=== PATIENT | female | born 1945 | race Caucasian/White ===

== ENCOUNTER 2019-04-29 12:11 | Inpatient (IN) ==
[2019-04-29] MEDS ORDERED: 0.9 % Sodium Chloride 1,000 ML IVC ONE (12:40)
[2019-04-29 13:18] LABS: Basophils # 0.1 K/mcL (0.0-0.2); Eosinophils # 0.2 K/mcL (0.0-0.6); Eosinophils % 2.7 %; Hematocrit 35.9 % (35.3-44.9); Hemoglobin 11.2 g/dL (11.5-15.4); Immature Granulocytes % 0.4 % (0-4); Lymphocytes # 1.2 K/mcL (0.6-4.6); Lymphocytes % 14.2 %; Mean Corpuscular HGB Conc 31.2 g/dL (31.6-35.5); Mean Corpuscular Hemoglobin 26.6 pg (28.0-33.3); Mean Corpuscular Volume 85.3 fL (83.0-100.0); Mean Platelet Volume 10.6 fL (9.4-12.4); Monocytes # 0.7 K/mcL (0.0-1.3); Monocytes % 8.8 %; Neutrophils # 6.1 K/mcL (1.6-8.9); Platelet Count 245 K/mcL (140-400); Red Blood Count 4.21 M/mcL (3.82-4.97); Red Cell Distribution Width 14.6 % (11.5-14.5); Segmented Neutrophils % 72.9 %; White Blood Count 8.4 K/mcL (4.3-11.1)
[2019-04-29 13:26] LABS: INR 1.1
[2019-04-29 13:37] LABS: Calcium 9.3 mg/dL (8.6-10.3); Potassium 4.7 mEq/L (3.5-5.1)
--- NOTE | 2019-04-29 13:39 | Emergency Department Note ---
Disposition Clinical Impression: RADHA (acute kidney injury) Syncope Qualifiers: Syncope type: unspecified Qualified Code(s): R55 - Syncope and collapse Disposition: Admitted As Inpatient Condition: Fair Time of Disposition: 15:14 General Adult HPI - General Chief complaint: ED Fall Stated complaint: Fall hurts all over Time Seen by Provider: 04/29/19 12:14 Source: patient Mode of arrival: ambulatory Limitations: no limitations Nursing Notes Reviewed: Yes Vital Signs Reviewed: Yes - History of Present Illness HPI Narrative: 74-year-old female presents to the emergency department complaining of syncope and falls. Says she has fell multiple times partly 10 times over the last 2 months says she feels like she can pass out and lightheaded and falls in his the ground. She is not on any blood thinners. That she feels it might be her arthritis her her knees that keep giving up she is unsure. Said that she is not tripping or having any mechanical falls. She says she has no headaches no blurry vision last felt was 2 days ago not complaining of any headaches. She has no fevers. No abdominal pain chest pain shortness of breath. Said the the falls is getting worse as what caused her to come in. Pain Scale: 10 - Related Data Home Medications Medication Instructions Recorded Confirmed Cholecalciferol (D-3) [Vitamin D] 2,000 unit PO DAILY 04/29/19 04/29/19 Citalopram [CeleXA] 40 mg PO DAILY 04/29/19 04/29/19 Cyanocobalamin/Folic Acid [Vitamin 1 each PO DAILY 04/29/19 04/29/19 L25-Lfnzt Acid Tablet] LORazepam [Ativan] 1 mg PO HS 04/29/19 04/29/19 Levothyroxine Sodium [Levoxyl] 100 mcg PO DAILY 04/29/19 04/29/19 Losartan Potassium [Cozaar] 50 mg PO DAILY 04/29/19 04/29/19 Magnesium 250 mg PO DAILY 04/29/19 04/29/19 Pantoprazole Sodium [Protonix] 40 mg PO DAILY 04/29/19 04/29/19 Tramadol HCl [Ultram] 50 mg PO QID PRN 04/29/19 04/29/19 Allergies Allergy/AdvReac Type Severity Reaction Status Date / Time No Known Allergies Allergy Verified 09/11/15 16:47 All systems ED: reviewed and negative except as stated. Review of Systems: As Per HPI Past Medical History - Past Medical History Attestation: Yes The following information was validated with the patient. Source: patient Medical history: Reports: GERD, hypertension, thyroid disease - Social History Smoking Status: Former smoker Smokeless Tobacco Status: No Alcohol use: Reports: occasionally Physical Exam - General Limitations: no limitations General appearance: alert, in no apparent distress - Head Head exam: atraumatic, normocephalic, normal inspection - Eye Eye exam: Present: normal appearance, PERRL, EOMI - ENT ENT exam: normal exam, normal oropharynx, mucous membranes moist - Neck Neck exam: Present: normal inspection, full ROM, trachea midline - Chest Chest inspection: Present: normal inspection, symmetric chest wall rise - Respiratory Respiratory exam: Present: normal lung sounds bilaterally - Cardiovascular Cardiovascular exam: Present: regular rate, normal rhythm, normal heart sounds - Abdominal Exam Abdominal exam: Present: soft, Non-Tender, normal bowel sounds. Absent: tenderness, distention, guarding, rebound, rigidity - Extremities Exam Extremities exam: Present: normal inspection, full ROM. Absent: tenderness, pedal edema - Back Exam Back exam: Present: normal inspection, full ROM. Absent: tenderness, CVA tenderness (R), CVA tenderness (L) - Neurological Exam Neurological exam: Present: alert, oriented X3 - Skin Skin exam: Present: warm, dry, intact, normal color Course Course Narrative: We will get EKG CBC BMP PT INR as well as troponin. Well-seated urinalysis. Patient most likely will be admitted for syncope workup. She is on any blood thinners at this time. Well-seated CT of the head to be sure there is no acute intracranial pathology. Vital Signs Temperature 98.6 F 04/29/19 12:13 Pulse Rate 80 04/29/19 12:13 Respiratory Rate 18 04/29/19 12:13 Blood Pressure 140/73 04/29/19 12:13 O2 Sat by Pulse Oximetry 96 04/29/19 12:13 Temperature 98.6 F 04/29/19 12:13 Pulse Rate 80 04/29/19 12:13 Respiratory Rate 18 04/29/19 12:13 Blood Pressure 140/73 04/29/19 12:13 O2 Sat by Pulse Oximetry 95 04/29/19 12:28 Oxygen Delivery Oxygen Delivery Room Air Medical Decision Making - MDM Narrative Medical decision making narrative: Labs came back slightly elevated creatinine could be RADHA. Did give patient IV fluids. Head CT came back negative chest x-ray also negative EKG had no acute findings. Patient will be admitted to the hospitalist service to Dr. Dwight root. For a syncope workup. Patient met in stable condition Chest X-Ray 04/29/19 12:40 IMPRESSION: No radiographic evidence of acute cardiopulmonary disease. D/ / Sedrick Pringle / Sedrick Pringle Interpreting Provider: Sedrick Pringle Head CT 04/29/19 12:40 IMPRESSION: 1. No acute intracranial abnormality. 2. Minimal global parenchymal volume loss. 3. Atherosclerosis. D/ / Igor Mcmanus MD / Igor Mcmanus MD Interpreting Provider: Igor Mcmanus MD - Medical Records Medical records reviewed: Yes I reviewed the patient's medical records. - Lab Data Lab results reviewed: Yes I reviewed the patient's lab results. Result diagrams: 04/29/19 12:57 04/29/19 12:57 Lab Results 04/29/19 04/29/19 04/29/19 Range/Units 12:57 12:57 12:57 WBC 8.4 (4.3-11.1) K/mcL RBC 4.21 (3.82-4.97) M/mcL Hgb 11.2 L (11.5-15.4) g/dL Hct 35.9 (35.3-44.9) % MCV 85.3 (83.0-100.0) fL MCH 26.6 L (28.0-33.3) pg MCHC 31.2 L (31.6-35.5) g/dL RDW 14.6 H (11.5-14.5) % Plt Count 245 (140-400) K/mcL MPV 10.6 (9.4-12.4) fL Immature Gran % 0.4 (0-4) % Seg Neutrophils % 72.9 % Lymphocytes % 14.2 % Monocytes % 8.8 % Eosinophils % 2.7 % Basophils % 1.0 % Neutrophils # 6.1 (1.6-8.9) K/mcL Lymphocytes # 1.2 (0.6-4.6) K/mcL Monocytes # 0.7 (0.0-1.3) K/mcL Eosinophils # 0.2 (0.0-0.6) K/mcL Basophils # 0.1 (0.0-0.2) K/mcL PT 12.0 (9.4-12.1) Seconds INR 1.1 Sodium 132 L (136-145) mEq/L Potassium 4.7 (3.5-5.1) mEq/L Chloride 97 L (98-107) mEq/L Carbon Dioxide 31 H (23-29) mEq/L BUN 16 (8-23) mg/dL Creatinine 1.23 H (0.60-1.20) mg/dL Est GFR ( Amer) 51 L (> 60) Est GFR (Non-Af Amer) 42 L (> 60) BUN/Creatinine Ratio 13 (6-26) Glucose 107 H (70-105) mg/dL Calculated Osmolality 276 L (280-300) Calcium 9.3 (8.6-10.3) mg/dL Troponin I (< 0.04) ng/mL Urine Color (Yellow) Urine Clarity (Clear) Urine pH (5.0-8.0) pH Units Ur Specific [place] (1.010-1.025) Urine Protein (Neg-Trace) mg/dL Urine Glucose (UA) (Normal) mg/dL Urine Ketones (Negative) mg/dL Urine Blood (Negative) Urine Nitrite (Negative) Urine Bilirubin (Negative) Urine Urobilinogen (Normal) mg/dL Ur Leukocyte Esterase (Negative) Urine Microscopic RBC (0-3) per hpf Urine Microscopic WBC (0-3) per hpf Ur Squamous Epith Cells (None-Few) per lpf Urine Bacteria (None-Few) per hpf Hyaline Casts (None-Few) per lpf Ur Culture Indicated? (NO) 04/29/19 04/29/19 Range/Units 12:57 14:28 WBC (4.3-11.1) K/mcL RBC (3.82-4.97) M/mcL Hgb (11.5-15.4) g/dL Hct (35.3-44.9) % MCV (83.0-100.0) fL MCH (28.0-33.3) pg MCHC (31.6-35.5) g/dL RDW (11.5-14.5) % Plt Count (140-400) K/mcL MPV (9.4-12.4) fL Immature Gran % (0-4) % Seg Neutrophils % % Lymphocytes % % Monocytes % % Eosinophils % % Basophils % % Neutrophils # (1.6-8.9) K/mcL Lymphocytes # (0.6-4.6) K/mcL Monocytes # (0.0-1.3) K/mcL Eosinophils # (0.0-0.6) K/mcL Basophils # (0.0-0.2) K/mcL PT (9.4-12.1) Seconds INR Sodium (136-145) mEq/L Potassium (3.5-5.1) mEq/L Chloride (98-107) mEq/L Carbon Dioxide (23-29) mEq/L BUN (8-23) mg/dL Creatinine (0.60-1.20) mg/dL Est GFR ( Amer) (> 60) Est GFR (Non-Af Amer) (> 60) BUN/Creatinine Ratio (6-26) Glucose (70-105) mg/dL Calculated Osmolality (280-300) Calcium (8.6-10.3) mg/dL Troponin I < 0.03 (< 0.04) ng/mL Urine Color Yellow (Yellow) Urine Clarity Clear (Clear) Urine pH 7.0 (5.0-8.0) pH Units Ur Specific [place] 1.009 L (1.010-1.025) Urine Protein Negative (Neg-Trace) mg/dL Urine Glucose (UA) Normal (Normal) mg/dL Urine Ketones Negative (Negative) mg/dL Urine Blood Negative (Negative) Urine Nitrite Negative (Negative) Urine Bilirubin Negative (Negative) Urine Urobilinogen Normal (Normal) mg/dL Ur Leukocyte Esterase Trace H (Negative) Urine Microscopic RBC 0-3 (0-3) per hpf Urine Microscopic WBC 0-3 (0-3) per hpf Ur Squamous Epith Cells Moderate H (None-Few) per lpf Urine Bacteria None Seen (None-Few) per hpf Hyaline Casts None Seen (None-Few) per lpf Ur Culture Indicated? YES A (NO) - Radiology Data Radiology results reviewed: Yes I reviewed the patient's radiology results. - EKG Data EKG #1 EKG attestation: Yes I reviewed and interpreted this EKG. EKG results narrative: EKG done at 1245 review myself and the attending shows sinus rhythm at a rate of 67, NM 182, QRS 84, QTc 434. There is no acute ST changes no acute T-wave changes no signs of ischemia. No signs of hypertrophy, heart strain, heart block. No WPW/Brugada/HOCM. No changes based on old EKG done 12/07/13
[2019-04-29 14:44] LABS: Bilirubin,Urine Negative (Negative); Blood,Urine Negative (Negative); Clarity,Urine Clear (Clear); Color,Urine Yellow (Yellow); Glucose,Urine (UA) Normal (Normal); Ketones,Urine Negative (Negative); Leukocyte Esterase,Urine Trace (Negative); Nitrite,Urine Negative (Negative); Protein,Urine Negative (Neg-Trace); Specific Gravity,Urine 1.009 (1.010-1.025); Urobilinogen,Urine Normal (Normal)
[2019-04-29 14:46] LABS: Bacteria,Urine None Seen per hpf (None-Few); Hyaline Casts,Urine None Seen per lpf (None-Few); RBC,Urine 0-3 per hpf (0-3); Squamous Epithelial Cell,Urine Moderate per lpf (None-Few); WBC,Urine 0-3 per hpf (0-3)
--- NOTE | 2019-04-29 15:23 | Internal Med History&Physical ---
Date of Encounter: 04/29/19 Time of Encounter: 15:23 Internal Medicine - H&P: HPI History of present illness: Ms. Doe is a 74 year old female with history of RLS, HTN, hypothyroid presented to ED for left hip pain with frequent falls. She is also having acute left foot pain (from falling) and a chronic right foot pain. She has fallen 10 times in the past two months. She states she occasionally loses balance, no LOC. She has hit her head a few times. Not on any blood thinners. She feels probelms from her knees. She denies headache, blurry vision, chest pain, SOB, fevers, n/v, neck stiffness. She has chronic left leg numbness after a L4-L5 fusion in the past. In the ED A CT head was done that showed no acute process. A left hip and right foot x-ray was negative for fracture. She had borderline elevated creatinine but near baseline, she was given 1 L IV fluids. Past Med Surg Social Fam HX - Past Medical History Medical history: GERD, hypertension, thyroid disease - Past Surgical History Additional surgical history: back surgery - Social History Smoking Status: Former smoker Smokeless Tobacco Status: No Alcohol use: occasionally Internal Medicine - H&P: Meds Cholecalciferol (D-3) [Vitamin D] 2,000 unit PO DAILY 04/29/19 [History] Citalopram [CeleXA] 40 mg PO DAILY 04/29/19 [History] Cyanocobalamin/Folic Acid [Vitamin N39-Yhhyx Acid Tablet] 1 each PO DAILY 04/29/19 [History] LORazepam [Ativan] 1 mg PO HS 04/29/19 [History] Levothyroxine Sodium [Levoxyl] 100 mcg PO DAILY 04/29/19 [History] Losartan Potassium [Cozaar] 50 mg PO DAILY 04/29/19 [History] Magnesium 250 mg PO DAILY 04/29/19 [History] Pantoprazole Sodium [Protonix] 40 mg PO DAILY 04/29/19 [History] Tramadol HCl [Ultram] 50 mg PO QID PRN 04/29/19 [History] Allergy/AdvReac Type Severity Reaction Status Date / Time No Known Allergies Allergy Verified 09/11/15 16:47 All Systems PM: A 10-system review of systems was performed and is negative for pertinent findings except as documented above in the HPI. - Constitutional Vitals: Temp Pulse Resp BP Pulse Ox 98.6 F 80 18 140/73 95 04/29/19 12:13 04/29/19 12:13 04/29/19 12:13 04/29/19 12:13 04/29/19 12:28 General appearance: Present: A&O X 3, obese Exam: Moderate discomfort from hip pain . - Head Head exam: Present: atraumatic, normocephalic - Eye Eye exam: Present: PERRL, conjuntiva pink, sclera anicteric Pupils: Present: PERRL - Neck Neck exam general surgery: Present: supple, trachea midline. Absent: lymphadenopathy - Respiratory Respiratory exam: Present: CTAB. Absent: accessory muscle use, rales, rhonchi, wheezes - Cardiovascular Cardiovascular exam: Present: RRR, +S1, +S2. Absent: diastolic murmur, gallop, rubs, systolic murmur - GI/Abdominal GI/Abdominal exam: Present: normal bowel sounds, soft, no peritoneal signs. Absent: distended, tenderness - Extremities Exam Extremities exam: Present: warm, radial pulses palpable and symmetrical. Absent: calf tenderness, cyanotic, pedal edema Additional comments: Left hip tenderness without any bruising or hematoma appearing. Sensation of both lower extremities are in tact. Tibial pulses palpable bilaterally. Strength assessment limited due to patient left hip pain. Legs are not normally aligned. - Neurological Exam Neurological exam: Present: CN II-XII intact, oriented X3, no focal deficits. Absent: pronater drift, facial droop, speech deficit - Skin Skin exam: Present: dry, intact Additional comments: Right upper extremity bruising. Internal Med - H&P Results - Labs CBC & Chem 7: 04/29/19 12:57 04/29/19 12:57 Labs: Short CBC 04/29/19 Range/Units 12:57 WBC 8.4 (4.3-11.1) K/mcL Hgb 11.2 L (11.5-15.4) g/dL Hct 35.9 (35.3-44.9) % Plt Count 245 (140-400) K/mcL Neutrophils # 6.1 (1.6-8.9) K/mcL BMP 04/29/19 12:57 Sodium 132 L Potassium 4.7 Chloride 97 L Carbon Dioxide 31 H BUN 16 Creatinine 1.23 H Glucose 107 H Calcium 9.3 Cardiac Enzymes 04/29/19 Range/Units 12:57 Troponin I < 0.03 (< 0.04) ng/mL Urine 04/29/19 Range/Units 14:28 Urine Color Yellow (Yellow) Urine Clarity Clear (Clear) Urine pH 7.0 (5.0-8.0) pH Units Ur Specific [place] 1.009 L (1.010-1.025) Urine Protein Negative (Neg-Trace) mg/dL Urine Glucose (UA) Normal (Normal) mg/dL - Impressions ITS Impressions Chest X-Ray 04/29/19 12:40 IMPRESSION: No radiographic evidence of acute cardiopulmonary disease. D/ / Sedrick Pringle / Sedrick Pringle Interpreting Provider: Sedrick Pringle Head CT 04/29/19 12:40 IMPRESSION: 1. No acute intracranial abnormality. 2. Minimal global parenchymal volume loss. 3. Atherosclerosis. D/ / Igor Mcmanus MD / Igor Mcmanus MD Interpreting Provider: Igor Mcmanus MD - Assessment and Plan (1) Syncope Current Visit: Yes Status: Acute Assessment and plan: Patient having loss of balance. Admitted for syncope, unsure if this is true syncopal episode. She is having loss of balance possibly lower extremity deficit. No bowel or bladder issues. - Echocardiogram - Carotid duplex - Neurology consult - MRI cervical spine - Check TSH, B12 Qualifiers: Syncope type: unspecified Qualified Code(s): R55 - Syncope and collapse (2) Left hip pain Current Visit: Yes Status: Acute Assessment and plan: X-ray negative for fracture but there is possibly underlying fracture not seen on x-ray patient appears in moderate discomfort for the hip pain. Obtain MRI hip. (3) Hypertension Current Visit: Yes Status: Acute Qualifiers: Hypertension type: essential hypertension Qualified Code(s): I10 - Essential (primary) hypertension (4) Hypothyroid Current Visit: Yes Status: Acute Qualifiers: Hypothyroidism type: unspecified Qualified Code(s): E03.9 - Hypothyroidism, unspecified (5) Restless leg syndrome Current Visit: Yes Status: Acute (6) Chronic kidney disease (CKD), stage III (moderate) Current Visit: Yes Status: Acute (7) RADHA (acute kidney injury) Current Visit: Yes Status: Acute Assessment and plan: Patient creatinine slightly elevated but is near baseline. Give gentle IV fluid hydration. (8) Frequent falls Current Visit: Yes Status: Acute Assessment and plan: Workup for presyncope and lower extremity issues as above PT/OT. - Time Spent With Patient Total time spent is greater than 50% in coordination of care (as documented) at patient's floor/unit and/or counseling patient:
[2019-04-29] MEDS ORDERED: traMADol 50 MG TABLET PO PRN (15:29)
[2019-04-29] MEDS ORDERED: Naloxone 0.4 MG/ML INJ IVP PRN (15:31)
--- NOTE | 2019-04-29 15:35 | Emergency Department Note ---
Disposition Clinical Impression: RADHA (acute kidney injury) Syncope Qualifiers: Syncope type: unspecified Qualified Code(s): R55 - Syncope and collapse Disposition: Admitted As Inpatient Condition: Fair Time of Disposition: 15:35 General Adult HPI - General Chief complaint: ED Fall Stated complaint: Fall hurts all over Time Seen by Provider: 04/29/19 12:14 Source: patient Mode of arrival: ambulatory Limitations: no limitations - History of Present Illness Pain Scale: 10 - Related Data Home Medications Medication Instructions Recorded Confirmed Cholecalciferol (D-3) [Vitamin D] 2,000 unit PO DAILY 04/29/19 04/29/19 Citalopram [CeleXA] 40 mg PO DAILY 04/29/19 04/29/19 Cyanocobalamin/Folic Acid [Vitamin 1 each PO DAILY 04/29/19 04/29/19 T73-Sgupo Acid Tablet] LORazepam [Ativan] 1 mg PO HS 04/29/19 04/29/19 Levothyroxine Sodium [Levoxyl] 100 mcg PO DAILY 04/29/19 04/29/19 Losartan Potassium [Cozaar] 50 mg PO DAILY 04/29/19 04/29/19 Magnesium 250 mg PO DAILY 04/29/19 04/29/19 Pantoprazole Sodium [Protonix] 40 mg PO DAILY 04/29/19 04/29/19 Tramadol HCl [Ultram] 50 mg PO QID PRN 04/29/19 04/29/19 Allergies Allergy/AdvReac Type Severity Reaction Status Date / Time No Known Allergies Allergy Verified 09/11/15 16:47 Past Medical History - Past Medical History Medical history: Reports: GERD, hypertension, thyroid disease - Social History Smoking Status: Former smoker Smokeless Tobacco Status: No Alcohol use: Reports: occasionally Physical Exam - General Limitations: no limitations General appearance: alert, in no apparent distress Course Vital Signs Temperature 98.6 F 04/29/19 12:13 Pulse Rate 80 04/29/19 12:13 Respiratory Rate 18 04/29/19 12:13 Blood Pressure 140/73 04/29/19 12:13 O2 Sat by Pulse Oximetry 96 04/29/19 12:13 Temperature 98.6 F 04/29/19 12:13 Pulse Rate 80 04/29/19 12:13 Respiratory Rate 18 04/29/19 12:13 Blood Pressure 140/73 04/29/19 12:13 O2 Sat by Pulse Oximetry 95 04/29/19 12:28 Oxygen Delivery Oxygen Delivery Room Air Medical Decision Making - Lab Data Result diagrams: 04/29/19 12:57 04/29/19 12:57 Lab Results 04/29/19 04/29/19 04/29/19 Range/Units 12:57 12:57 12:57 WBC 8.4 (4.3-11.1) K/mcL RBC 4.21 (3.82-4.97) M/mcL Hgb 11.2 L (11.5-15.4) g/dL Hct 35.9 (35.3-44.9) % MCV 85.3 (83.0-100.0) fL MCH 26.6 L (28.0-33.3) pg MCHC 31.2 L (31.6-35.5) g/dL RDW 14.6 H (11.5-14.5) % Plt Count 245 (140-400) K/mcL MPV 10.6 (9.4-12.4) fL Immature Gran % 0.4 (0-4) % Seg Neutrophils % 72.9 % Lymphocytes % 14.2 % Monocytes % 8.8 % Eosinophils % 2.7 % Basophils % 1.0 % Neutrophils # 6.1 (1.6-8.9) K/mcL Lymphocytes # 1.2 (0.6-4.6) K/mcL Monocytes # 0.7 (0.0-1.3) K/mcL Eosinophils # 0.2 (0.0-0.6) K/mcL Basophils # 0.1 (0.0-0.2) K/mcL PT 12.0 (9.4-12.1) Seconds INR 1.1 Sodium 132 L (136-145) mEq/L Potassium 4.7 (3.5-5.1) mEq/L Chloride 97 L (98-107) mEq/L Carbon Dioxide 31 H (23-29) mEq/L BUN 16 (8-23) mg/dL Creatinine 1.23 H (0.60-1.20) mg/dL Est GFR ( Amer) 51 L (> 60) Est GFR (Non-Af Amer) 42 L (> 60) BUN/Creatinine Ratio 13 (6-26) Glucose 107 H (70-105) mg/dL Calculated Osmolality 276 L (280-300) Calcium 9.3 (8.6-10.3) mg/dL Troponin I (< 0.04) ng/mL Urine Color (Yellow) Urine Clarity (Clear) Urine pH (5.0-8.0) pH Units Ur Specific [place] (1.010-1.025) Urine Protein (Neg-Trace) mg/dL Urine Glucose (UA) (Normal) mg/dL Urine Ketones (Negative) mg/dL Urine Blood (Negative) Urine Nitrite (Negative) Urine Bilirubin (Negative) Urine Urobilinogen (Normal) mg/dL Ur Leukocyte Esterase (Negative) Urine Microscopic RBC (0-3) per hpf Urine Microscopic WBC (0-3) per hpf Ur Squamous Epith Cells (None-Few) per lpf Urine Bacteria (None-Few) per hpf Hyaline Casts (None-Few) per lpf Ur Culture Indicated? (NO) 04/29/19 04/29/19 Range/Units 12:57 14:28 WBC (4.3-11.1) K/mcL RBC (3.82-4.97) M/mcL Hgb (11.5-15.4) g/dL Hct (35.3-44.9) % MCV (83.0-100.0) fL MCH (28.0-33.3) pg MCHC (31.6-35.5) g/dL RDW (11.5-14.5) % Plt Count (140-400) K/mcL MPV (9.4-12.4) fL Immature Gran % (0-4) % Seg Neutrophils % % Lymphocytes % % Monocytes % % Eosinophils % % Basophils % % Neutrophils # (1.6-8.9) K/mcL Lymphocytes # (0.6-4.6) K/mcL Monocytes # (0.0-1.3) K/mcL Eosinophils # (0.0-0.6) K/mcL Basophils # (0.0-0.2) K/mcL PT (9.4-12.1) Seconds INR Sodium (136-145) mEq/L Potassium (3.5-5.1) mEq/L Chloride (98-107) mEq/L Carbon Dioxide (23-29) mEq/L BUN (8-23) mg/dL Creatinine (0.60-1.20) mg/dL Est GFR ( Amer) (> 60) Est GFR (Non-Af Amer) (> 60) BUN/Creatinine Ratio (6-26) Glucose (70-105) mg/dL Calculated Osmolality (280-300) Calcium (8.6-10.3) mg/dL Troponin I < 0.03 (< 0.04) ng/mL Urine Color Yellow (Yellow) Urine Clarity Clear (Clear) Urine pH 7.0 (5.0-8.0) pH Units Ur Specific [place] 1.009 L (1.010-1.025) Urine Protein Negative (Neg-Trace) mg/dL Urine Glucose (UA) Normal (Normal) mg/dL Urine Ketones Negative (Negative) mg/dL Urine Blood Negative (Negative) Urine Nitrite Negative (Negative) Urine Bilirubin Negative (Negative) Urine Urobilinogen Normal (Normal) mg/dL Ur Leukocyte Esterase Trace H (Negative) Urine Microscopic RBC 0-3 (0-3) per hpf Urine Microscopic WBC 0-3 (0-3) per hpf Ur Squamous Epith Cells Moderate H (None-Few) per lpf Urine Bacteria None Seen (None-Few) per hpf Hyaline Casts None Seen (None-Few) per lpf Ur Culture Indicated? YES A (NO) Attestation Statement - Attestation Attestation: I reviewed the residents documentation and agree with the residents assessment and plan of care. I have personally had face to face time with the patient. (Brief History, Brief Exam, and MDM) I personally supervised and was present for the rahseed/critical portions of the following procedures completed by the resident: EKG 74 year old female presents to the ED with complaints of sycnope and mutliple falls. mild RADHA and increased pain in left hip and right foot. Zayra has a hisgtory of restless leg syndrome of which she has had a difficult time medicating and managing at home. troponing negative, non-ischemic EKG. Admit to medicine.
[2019-04-29] MEDS ORDERED: 0.9 % Sodium Chloride 1,000 ML IVC SCH (15:45)
[2019-04-29 16:54] LABS: Magnesium 2.1 mg/dL (1.6-2.6); Phosphorous 3.3 mg/dL (2.7-4.5)
[2019-04-29 17:07] LABS: Thyroid Stimulating Hormone 4.471 mcIU/mL (0.340-5.600)
[2019-04-29] MEDS: *HR* HYDROcodone/Acet 7.5/325 mg TABLET PO PRN (17:57)
[2019-04-29] MEDS: *HR* LORazepam 1 MG TABLET PO SCH (23:44)
[2019-04-30] MEDS: *HR* HYDROcodone/Acet 7.5/325 mg TABLET PO PRN ×3 (01:48→22:32)
[2019-04-30] MEDS ORDERED: tiZANidine 4 MG TABLET PO ONE ×2 (04:24)
[2019-04-30] MEDS ORDERED: tiZANidine 4 MG TABLET ONE (04:35)
[2019-04-30 05:28] LABS: Calcium 8.5 mg/dL (8.6-10.3); Potassium 4.2 mEq/L (3.5-5.1)
[2019-04-30 05:44] LABS: Basophils # 0.1 K/mcL (0.0-0.2); Basophils % 0.9 %; Eosinophils # 0.2 K/mcL (0.0-0.6); Eosinophils % 2.9 %; Hematocrit 34.6 % (35.3-44.9); Hemoglobin 10.4 g/dL (11.5-15.4); Immature Granulocytes % 0.4 % (0-4); Lymphocytes # 1.2 K/mcL (0.6-4.6); Lymphocytes % 15.3 %; Mean Corpuscular HGB Conc 30.1 g/dL (31.6-35.5); Mean Corpuscular Hemoglobin 26.1 pg (28.0-33.3); Mean Corpuscular Volume 86.7 fL (83.0-100.0); Monocytes # 0.8 K/mcL (0.0-1.3); Monocytes % 9.9 %; Neutrophils # 5.4 K/mcL (1.6-8.9); Platelet Count 232 K/mcL (140-400); Red Blood Count 3.99 M/mcL (3.82-4.97); Red Cell Distribution Width 14.5 % (11.5-14.5); Segmented Neutrophils % 70.6 %; White Blood Count 7.7 K/mcL (4.3-11.1)
[2019-04-30] MEDS: Vitamin B Complex/Vit C/Vit E 1 EACH TABLET PO SCH (07:52)
[2019-04-30] MEDS: Magnesium Oxide 400 MG TABLET PO SCH (07:52)
--- NOTE | 2019-04-30 12:02 | Internal Med Progress Note ---
Hospitalist Progress Note - Encounter Date of Encounter: 04/30/19 Time of Encounter: 12:00 - Subjective Interval History: No acute events. - Exam Vitals: Temp Pulse Resp BP Pulse Ox 98.0 F 57 18 111/62 96 04/30/19 11:00 04/30/19 11:00 04/30/19 11:00 04/30/19 11:00 04/30/19 11:00 Exam: Moderate discomfort from hip pain . - Assessment and Plan (1) Weakness Current Visit: Yes Status: Acute Assessment and Plan: Patient having loss of balance. Admitted for syncope, unsure if this is true syncopal episode. She is having loss of balance possibly lower extremity deficit. No bowel or bladder issues. Echocardiogram showed no findings to explain dizziness. Carotid duplex normal. TSH, B12 wnl PT/OT recs SNF which patient is agreeable to. Dispo: await placement. (2) Left hip pain Current Visit: Yes Status: Acute Assessment and Plan: X-ray negative for fracture but there is possibly underlying fracture not seen on x-ray patient appears in moderate discomfort for the hip pain. MRI was done that showed no acute fracture. - Continue supportive care. - PT/OT (3) Hypertension Current Visit: Yes Status: Acute Assessment and Plan: Cozaar held on admission due to renal function and lower normal BP. Currently BP is within normal limits. Resume Cozaar if BP increases. (4) Hypothyroid Current Visit: Yes Status: Acute (5) Restless leg syndrome Current Visit: Yes Status: Acute Assessment and Plan: Follows-up as outpatient. (6) Chronic kidney disease (CKD), stage III (moderate) Current Visit: Yes Status: Acute Assessment and Plan: At baseline (7) RADHA (acute kidney injury) Current Visit: Yes Status: Acute Assessment and Plan: Patient creatinine slightly elevated but is near baseline. was given IV fluid hydration Resolved. (8) Frequent falls Current Visit: Yes Status: Acute Assessment and Plan: Workup for presyncope and lower extremity issues as above PT/OT. - Time Spent with Patient Total time spent is greater than 50% in coordination of care (as documented) at patient's floor/unit and/or counseling patient: Internal Medicine: Result - Labs CBC & Chem 7: 04/30/19 04:55 04/30/19 04:55 Labs: Short CBC 04/29/19 04/30/19 Range/Units 12:57 04:55 WBC 8.4 7.7 (4.3-11.1) K/mcL Hgb 11.2 L 10.4 L (11.5-15.4) g/dL Hct 35.9 34.6 L (35.3-44.9) % Plt Count 245 232 (140-400) K/mcL Neutrophils # 6.1 5.4 (1.6-8.9) K/mcL BMP 04/29/19 04/30/19 12:57 04:55 Sodium 132 L 136 Potassium 4.7 4.2 Chloride 97 L 103 Carbon Dioxide 31 H 26 BUN 16 14 Creatinine 1.23 H 1.15 Glucose 107 H 109 H Calcium 9.3 8.5 L Cardiac Enzymes 04/29/19 Range/Units 12:57 Troponin I < 0.03 (< 0.04) ng/mL Urine 04/29/19 Range/Units 14:28 Urine Color Yellow (Yellow) Urine Clarity Clear (Clear) Urine pH 7.0 (5.0-8.0) pH Units Ur Specific [place] 1.009 L (1.010-1.025) Urine Protein Negative (Neg-Trace) mg/dL Urine Glucose (UA) Normal (Normal) mg/dL - ABG Interpretation ABG results: PT/INR, D-dimer PT 12.0 Seconds (9.4-12.1) 04/29/19 12:57 - Impressions Impressions Chest X-Ray 04/29/19 12:40 IMPRESSION: No radiographic evidence of acute cardiopulmonary disease. D/ / Sedrick Pringle / Sedrick Pringle Interpreting Provider: Sedrick Pringle Head CT 04/29/19 12:40 IMPRESSION: 1. No acute intracranial abnormality. 2. Minimal global parenchymal volume loss. 3. Atherosclerosis. D/ / Igor Mcmanus MD / Igor Mcmanus MD Interpreting Provider: Igor Mcmanus MD Hip X-Ray 04/29/19 15:12 IMPRESSION: No acute osseous abnormality on AP pelvis and left hip radiographs. Mild left hip joint osteoarthritis. If pain persists or worsens, then additional evaluation with MRI is indicated to ensure no underlying radiographically occult process such as fracture, AVN or transient osteoporosis. D/ / Sedrick Pringle / Sedrick Pringle Interpreting Provider: Sedrick Pringle Foot X-Ray 04/29/19 15:21 IMPRESSION: No acute osseous injury. Moderate to severe pattern of osteoarthritis. D/ / Crispin Claire MD / Crispin Claire MD Interpreting Provider: Crispin Claire MD Hip MRI 04/29/19 17:00 IMPRESSION: 1. Image quality graded secondary to motion artifact. 2. Within limits of the exam no acute fracture identified. 3. Mild degenerative changes of the bilateral hips. D/ / Erik Ronquillo MD / Erik Ronquillo MD Interpreting Provider: Erik Ronquillo MD Cervical Spine MRI 04/29/19 19:17 IMPRESSION: Spondylotic changes/disc osteophyte complex results in [id number] canal narrowing at C5-6. No significant change since prior study. D/ / Ralph Riley MD / Ralph Riley MD Interpreting Provider: Ralph Riley MD Lumbar Spine MRI 04/29/19 19:17 IMPRESSION: Limited exam due to artifact Multilevel degenerative disc disease throughout the lower thoracic spine and the lumbar spine as described. See above for details D/ / Kamaljit Edouard / Kamaljit Edouard Interpreting Provider: Kamaljit Edouard Echocardiogram 04/29/19 21:42 Impressions: LVEF 60%. Indeterminate diastolic function. Normal right ventricular structure and function. Mild tricuspid regurgitation. No pulmonary hypertension. Left Ventricular Wall Motion: Rest Echo Findings All wall segments showed normal motion. Findings: Study Quality * Technically adequate exam. ECG Findings * Normal sinus rhythm. Left Ventricle * LVEF 60%. * Normal LV chamber size, wall thickness and function. * Indeterminate diastolic function. * No LVOT obstruction. Right Ventricle * Normal right ventricular structure and function. Left Atrium * Normal left atrial size. Right Atrium * Normal right atrial size. Mitral Valve * Normal mitral valve structure. * No mitral stenosis. * Trace mitral regurgitation. Aortic Valve * No aortic regurgitation. * Trileaflet aortic valve. * No aortic stenosis. Tricuspid Valve * Tricuspid valve not well visualized. * Mild tricuspid regurgitation. * Estimated RA pressure is 3 mmHg. * Estimated RVSP is 23 mmHg. * No pulmonary hypertension. Pulmonic Valve * Pulmonic valve is not well visualized. * No pulmonic stenosis. * No pulmonic regurgitation. Pulmonary Artery * Pulmonary artery not well visualized. Aorta * Normally sized aortic root. Pericardium * There is no pericardial effusion present. Interatrial Septum * No evidence of PFO by color Doppler. IVC * Normal IVC dimensions and inspiratory collapse. Consult Discharge Plan - Plan Referrals: Agapito Reese DO [Primary Care Provider] - (3) Hypertension Qualifiers: Hypertension type: essential hypertension Qualified Code(s): I10 - Essential (primary) hypertension (4) Hypothyroid Qualifiers: Hypothyroidism type: unspecified Qualified Code(s): E03.9 - Hypothyroidism, unspecified
--- NOTE | 2019-04-30 14:38 | Neurology - Consult Note ---
Date of Encounter: 04/30/19 Time of Encounter: 14:33 Assessment and Plan (1) Frequent falls Current Visit: Yes Status: Acute Patient with prior history of lumbar disc disease, status post lumbar fusion surgery, severe restless leg syndrome who developed chronic worsening frequent falling along with significant muscle stiffness in her lower extremities concerning for myelopathy. Patient completed MRI of the cervical spine which did show spinal canal stenosis worst at the level of C6-C7. The finding may contribute to the patient's frequent falling and myelopathic symptoms. Patient also had lumbar MRI which demonstrated post surgical changes as well as multiple level of disc disease however, no acute pathology identified that would need urgent surgical intervention. I would recommend the patient to follow-up with her spine surgeon at [facility] in the next one or 2 weeks for evaluation and treatment of cervical disc disease causing cervical myelopathy and frequent falling. Patient was offered to see spine surgeon here but she refused. She is to get PT evaluation and therapy MRI of the cervical spine and lumbar spine results reviewed and discussed with patient. All questions answered. (2) Restless leg syndrome Current Visit: Yes Status: Acute Patient has been treated and evaluated in the past for her restless leg syndrome. She has tried dopamine agonist therapy in the past without any significant benefits. Cause of restless leg syndrome may be secondary to her history of lumbar disc disease as well as cervical disc disease with myelopathy. Patient is advised to contact her spine surgeon for further evaluation and treatment of cervical disc disease causing myelopathy History of Present Illness Chief complaint: frequent falling HPI: Ms. Doe is a 74 year old female with a past medical history significant for restless leg syndrome, status post lumbar fusion surgery during 2016 who presented to the emergency room with the frequent falling. Patient states that she has been having frequent falling since the last few years gradually getting worse. She states that she has significant restless leg syndrome and has been tried on different medications but there are not helping her. Apparently, she has history of lumbar disc disease and during 2016 she was having difficulty walking and frequent falling and she was eventually evaluated by spine surgeon at [facility] who did lumbar fusion surgery for her. After surgery, her symptoms temporarily improved however, gradually she started experiencing worsening restless leg syndrome that prevent her from falling asleep at night. She states that during the daytime she feels so exhausted because of lack of sleep that when she walks she fell. She also has right knee replacement. During the last fall, she hurt her right foot. She also notices that her feet and legs are very stiff and at times her feet would turning side causing difficulty walking. At the time of this interview, patient completed MRI of the cervical spine as well as lumbar spine without contrast. MRI of the cervical spine D show multiple disc bulging causing spinal canal stenosis, worst at the level of C6- C7. MRI of the lumbar spine showed post surgical fusion however the study is markedly contaminated by motion artifact. Past Med Surg Social Fam HX - Past Medical History Medical history: GERD, hypertension, thyroid disease Psychiatric history: no psych history - Past Surgical History Surgical History: knee replacement, AILEEN/BSO Additional surgical history: back surgery (L4, L5, S1), right TKR - Social History Smoking Status: Former smoker Smokeless Tobacco Status: No Alcohol use: occasionally Drug use: none - Family History Father Hx Family Endocrine Disorder: Yes (T2DM) Mother Hx Family Cancer: Yes (colon cancer) Medications and Allergies Cholecalciferol (D-3) [Vitamin D] 2,000 unit PO DAILY 04/29/19 [History] Citalopram [CeleXA] 40 mg PO DAILY 04/29/19 [History] Cyanocobalamin/Folic Acid [Vitamin C37-Ycpuo Acid Tablet] 1 tab PO DAILY 04/29/19 [History] LORazepam [Ativan] 1 mg PO HS 04/29/19 [History] Levothyroxine Sodium [Levoxyl] 100 mcg PO DAILY 04/29/19 [History] Losartan Potassium [Cozaar] 50 mg PO DAILY 04/29/19 [History] Magnesium 250 mg PO DAILY 04/29/19 [History] Pantoprazole Sodium [Protonix] 40 mg PO DAILY 04/29/19 [History] Tramadol HCl [Ultram] 50 mg PO QID PRN 04/29/19 [History] Allergy/AdvReac Type Severity Reaction Status Date / Time No Known Allergies Allergy Verified 09/11/15 16:47 All Systems: The remainder of the systems were reviewed and are negative - Constitutional Constitutional ROS IM: anorexia (no), chills (no), daytime sleepiness (no), frequent falls (yes) - Nose, Mouth, Throat Nose, mouth and throat: abnormal hearing (no), dizziness (no), headache(s) (no) - Cardiovascular Cardiovascular ROS IM: chest pain (no), chest pain at rest (no), chest pain with activity (no) - Respiratory Respiratory IM: cough (no), dyspnea (no), hemoptysis (no), dyspnea on exertion (no) - Gastrointestinal Gastrointestinal: abdominal pain (no), change in bowel habits (no) - Musculoskeletal Musculoskeletal ROS IM: abnormal gait (yes), atrophy (no), back pain (yes), muscle cramps (yes), stiffness (yes) - Neurological Neurological ROS: abnormal gait (yes), abnormal hearing (no), abnormal movements (no), abnormal speech (no), confusion (no), frequent falls (yes), headache(s) (no), lack of coordination (yes), loss of vision (no) - Psychiatric Psychiatric general PM: abnormal sleep pattern (no), anhedonia (no), auditory hallucinations (no) - Endocrine Endocrine IM: change in body appearance (no) Physical Examination - Vital Signs Vital Signs: Initial Vital Signs Temp Pulse Resp BP Pulse Ox 98.6 F 80 18 140/73 96 04/29/19 12:13 04/29/19 12:13 04/29/19 12:13 04/29/19 12:13 04/29/19 12:13 - Constitutional General appearance: uncomfortable - Neurologic Sensorimotor examination: other (Patient has a significant right foot pain on palpation.) Detailed motor examination: other (Muscle strength is difficult to assess to her lower extremities. Slight touch to her right foot cause significant muscle spasm and focal pain.) Motor examination - right side: 5/5: deltoids, biceps, triceps, wrist flexion, wrist extension, hot stone setter, hip flexors, tibialis Anterior, quadriceps, toe extension (EHL), plantarflexion Motor examination - left side: 5/5: deltoids, biceps, triceps, wrist flexion, wrist extension, hip flexors, hot stone setter, quadriceps, tibialis Anterior, toe extension (EHL), plantarflexion Detailed sensory examination: other (Difficult to assess due to presence of right foot pain) Posture: other (Significant stiffness to her lower extremities with left foot internally rotated) Reflex and gait examination: other (Unable to access due to significant right foot pain) Reflexes: Biceps: 2+, Triceps: 2+, Brachioradialis: 2+, Patella: 2+, Achilles: 2+ Mental Status Examination: awake, alert, oriented to person, oriented to place, oriented to time, follows commands appropriately, answers questions appropriately, no agnosia, no aphasia, no aproxia Cranial nerve examination: PERRL, EOMI, visual beltre intact, corneal reflexes brisk symmetrically, sensory to face intact, mastication intact, no facial asymmetry is present, no dysarthria, hearing is intact symmetrically, soft palate elevates bilaterally upon phonation, gag reflex intact, flexes SCM and trapezius muscles symmetrically with full power, tongue protrudes midline, no atrophy or facial fasiculations present Results - Laboratory Findings CBC and BMP: 04/30/19 04:55 04/30/19 04:55 Abnormal lab findings: Abnormal lab results Hgb 10.4 g/dL (11.5-15.4) L 04/30/19 04:55 Hct 34.6 % (35.3-44.9) L 04/30/19 04:55 MCH 26.1 pg (28.0-33.3) L 04/30/19 04:55 MCHC 30.1 g/dL (31.6-35.5) L 04/30/19 04:55 RDW 14.6 % (11.5-14.5) H 04/29/19 12:57 Sodium 132 mEq/L (136-145) L 04/29/19 12:57 Chloride 97 mEq/L (98-107) L 04/29/19 12:57 Carbon Dioxide 31 mEq/L (23-29) H 04/29/19 12:57 Creatinine 1.23 mg/dL (0.60-1.20) H 04/29/19 12:57 Est GFR ( Amer) 56 (> 60) L 04/30/19 04:55 Est GFR (Non-Af Amer) 46 (> 60) L 04/30/19 04:55 Glucose 109 mg/dL (70-105) H 04/30/19 04:55 Calculated Osmolality 276 (280-300) L 04/29/19 12:57 Calcium 8.5 mg/dL (8.6-10.3) L 04/30/19 04:55 Iron 28 mcg/dL (50-170) L 04/29/19 16:09 % Saturation 8 % (15-50) L 04/29/19 16:09 Vitamin B12 1364 pg/mL (250-1100) H 04/29/19 16:09 Ur Specific [place] 1.009 (1.010-1.025) L 04/29/19 14:28 Ur Leukocyte Esterase Trace (Negative) H 04/29/19 14:28 Ur Squamous Epith Cells Moderate per lpf (None-Few) H 04/29/19 14:28 Ur Culture Indicated? YES (NO) A 04/29/19 14:28 Consult Discharge Plan - Plan Referrals: Agapito Reese DO [Primary Care Provider] -
[2019-04-30] MEDS: *HR* LORazepam 1 MG TABLET PO SCH (20:16)
[2019-05-01] MEDS: *HR* HYDROcodone/Acet 7.5/325 mg TABLET PO PRN ×3 (06:48→17:07)
[2019-05-01] MEDS: Magnesium Oxide 400 MG TABLET PO SCH (07:57)
[2019-05-01] MEDS: Vitamin B Complex/Vit C/Vit E 1 EACH TABLET PO SCH (07:57)
--- NOTE | 2019-05-01 09:17 | Internal Med Progress Note ---
Hospitalist Progress Note - Encounter Date of Encounter: 05/01/19 Time of Encounter: 09:23 - Subjective Interval History: No acute events. Weakness chronic. No syncopal/presyncopal episodes. - Exam Vitals: Temp Pulse Resp BP Pulse Ox 97.8 F 56 16 128/54 97 05/01/19 07:18 05/01/19 07:18 05/01/19 07:18 05/01/19 07:18 05/01/19 07:18 Exam: Resting more comfortably compared to yesterday. - Head Head exam: Present: atraumatic, normocephalic - Eye Eye exam: Present: PERRL, conjuntiva pink, sclera anicteric Pupils: Present: PERRL - Neck Neck exam general surgery: Present: supple, trachea midline. Absent: lymphadenopathy - Respiratory Respiratory exam: Present: CTAB. Absent: accessory muscle use, rales, rhonchi, wheezes - Cardiovascular Cardiovascular exam: Present: RRR, +S1, +S2. Absent: diastolic murmur, gallop, rubs, systolic murmur - GI/Abdominal GI/Abdominal exam: Present: normal bowel sounds, soft, no peritoneal signs. Absent: distended, tenderness - Extremities Exam Extremities exam: Present: warm, radial pulses palpable and symmetrical. Abs ent: calf tenderness, cyanotic, pedal edema Additional comments: Left hip tenderness without any bruising or hematoma appearing. Sensation of both lower extremities are in tact. Tibial pulses palpable bilaterally. Strength assessment limited due to patient left hip pain. Legs are not normally aligned. - Neurological Exam Neurological exam: Present: CN II-XII intact, oriented X3, no focal deficits. Absent: pronater drift, facial droop, speech deficit - Skin Skin exam: Present: dry, intact Additional comments: Right upper extremity bruising. . - Assessment and Plan (1) Weakness Current Visit: Yes Status: Acute Assessment and Plan: Patient having loss of balance. Admitted for syncope, unsure if this is true syncopal episode. She is having loss of balance possibly lower extremity deficit. No bowel or bladder issues. Echocardiogram showed no findings to explain dizziness. Carotid duplex normal. TSH, B12 wnl. PT/OT recs SNF which patient is agreeable to. Neurology evaluated, likely from cervical myelopathy, will need to see her Neurosurgeon. Was offered to see Spine doctor here but declined. Dispo: await placement. Will likely need 3 midnights (2) Left hip pain Current Visit: Yes Status: Acute Assessment and Plan: X-ray negative for fracture but there is possibly underlying fracture not seen on x-ray patient appears in moderate discomfort for the hip pain. MRI was done that showed no acute fracture. - Continue supportive care. - Continue PT/OT inpatient. (3) Hypertension Current Visit: Yes Status: Acute Assessment and Plan: Cozaar held on admission due to renal function and lower normal BP. Currently BP is within normal limits. Resume Cozaar if BP increases. (4) Hypothyroid Current Visit: Yes Status: Acute (5) Restless leg syndrome Current Visit: Yes Status: Acute Assessment and Plan: Follows-up as outpatient. D/W Neurology, this is likely related to myelopathy (6) Chronic kidney disease (CKD), stage III (moderate) Current Visit: Yes Status: Acute Assessment and Plan: At baseline (7) RADHA (acute kidney injury) Current Visit: Yes Status: Resolved Assessment and Plan: Patient creatinine slightly elevated but is near baseline. was given IV fluid hydration Resolved. (8) Frequent falls Current Visit: Yes Status: Acute Assessment and Plan: Workup for presyncope was negative This is likely myelopathy PT/OT. - Time Spent with Patient Total time spent is greater than 50% in coordination of care (as documented) at patient's floor/unit and/or counseling patient: Internal Medicine: Result - Labs CBC & Chem 7: 04/30/19 04:55 04/30/19 04:55 - ABG Interpretation ABG results: PT/INR, D-dimer PT 12.0 Seconds (9.4-12.1) 04/29/19 12:57 Consult Discharge Plan - Plan Referrals: Agapito Reese, DO [Primary Care Provider] - (3) Hypertension Qualifiers: Hypertension type: essential hypertension Qualified Code(s): I10 - Essential (primary) hypertension (4) Hypothyroid Qualifiers: Hypothyroidism type: unspecified Qualified Code(s): E03.9 - Hypothyroidism, unspecified
[2019-05-01] MEDS: *HR* Enoxaparin 30 MG/0.3 ML SYRINGE SQ SCH (11:45)
[2019-05-01] MEDS ORDERED: predniSONE 20 MG TABLET PO STA (12:45)
[2019-05-01] MEDS: *HR* LORazepam 1 MG TABLET PO SCH (22:15)
[2019-05-02] MEDS: *HR* HYDROcodone/Acet 7.5/325 mg TABLET PO PRN ×2 (02:58→11:16)
[2019-05-02] MEDS: *HR* Enoxaparin 30 MG/0.3 ML SYRINGE SQ SCH (05:26)
[2019-05-02] MEDS: Magnesium Oxide 400 MG TABLET PO SCH (08:45)
[2019-05-02] MEDS: Vitamin B Complex/Vit C/Vit E 1 EACH TABLET PO SCH (08:45)
[2019-05-02] MEDS ORDERED: predniSONE 20 MG TABLET PO SCH (09:00)
--- NOTE | 2019-05-02 09:05 | Internal Med Progress Note ---
Hospitalist Progress Note - Encounter Date of Encounter: 05/02/19 - Exam Vitals: Temp Pulse Resp BP Pulse Ox 98.1 F 60 16 138/63 92 05/02/19 06:55 05/02/19 06:55 05/02/19 06:55 05/02/19 06:55 05/02/19 06:55 - Time Spent with Patient Total time spent is greater than 50% in coordination of care (as documented) at patient's floor/unit and/or counseling patient: Internal Medicine: Result - Labs CBC & Chem 7: 04/30/19 04:55 04/30/19 04:55 - ABG Interpretation ABG results: PT/INR, D-dimer PT 12.0 Seconds (9.4-12.1) 04/29/19 12:57 Consult Discharge Plan - Plan Referrals: Agapito Reese DO [Primary Care Provider] -
[2019-05-02] MEDS ORDERED: *HR* Enoxaparin 40 MG/0.4 ML SYRINGE SQ SCH (09:35)
[2019-05-02 10:54] VITALS: BP 153/73
--- NOTE | 2019-05-02 12:21 | Electrocardiograph Report ---
[place] [id number] Test Date: 2019-04-29 Pat Name: Tammy Doe Department: [id number] Room: 3B31 Gender: F Communications Officer: : 1945 Requested By: Vaughn Zuñiga Order Number: [id number] Reading MD: Bib Esparza Measurements Intervals Stow Rate: 67 P: 22 SC: 182 QRS: 6 QRSD: 84 T: 15 QT: 411 QTc: 434 Interpretive Statements Sinus rhythm Electronically Signed On 05-02-2019 12:19:29 EDT by Bib Esparza
--- NOTE | 2019-05-02 14:01 | Discharge Summary ---
<Jeaneth Brown - Last Filed: 05/02/19 15:52> Date of Encounter: 05/02/19 - Discharge Diagnosis (1) Weakness Status: Acute (2) Left hip pain Status: Acute (3) Hypertension Status: Acute Qualifiers: Hypertension type: essential hypertension Qualified Code(s): I10 - Essential (primary) hypertension (4) Hypothyroid Status: Acute Qualifiers: Hypothyroidism type: unspecified Qualified Code(s): E03.9 - Hypothyroidism, unspecified (5) Restless leg syndrome Status: Acute (6) Chronic kidney disease (CKD), stage III (moderate) Status: Acute (7) RADHA (acute kidney injury) Status: Resolved (8) Frequent falls Status: Acute Hospital course: Ms. Doe is a 74 year old female - Time Spent with Patient Total time spent providing and/or coordinating discharge services: - Discharge Medications Prescriptions: No Action Tramadol HCl [Ultram] 50 mg PO QID PRN PRN Reason: Pain Pantoprazole Sodium [Protonix] 40 mg PO DAILY Cholecalciferol (D-3) [Vitamin D] 2,000 unit PO DAILY Magnesium 250 mg PO DAILY Losartan Potassium [Cozaar] 50 mg PO DAILY LORazepam [Ativan] 1 mg PO HS Levothyroxine Sodium [Levoxyl] 100 mcg PO DAILY Cyanocobalamin/Folic Acid [Vitamin W03-Ycawd Acid Tablet] 1 tab PO DAILY Citalopram [CeleXA] 40 mg PO DAILY Home Medications: Cholecalciferol (D-3) [Vitamin D] 2,000 unit PO DAILY 04/29/19 [History] Citalopram [CeleXA] 40 mg PO DAILY 04/29/19 [History] Cyanocobalamin/Folic Acid [Vitamin N93-Kuszg Acid Tablet] 1 tab PO DAILY 04/29/19 [History] LORazepam [Ativan] 1 mg PO HS 04/29/19 [History] Levothyroxine Sodium [Levoxyl] 100 mcg PO DAILY 04/29/19 [History] Losartan Potassium [Cozaar] 50 mg PO DAILY 04/29/19 [History] Magnesium 250 mg PO DAILY 04/29/19 [History] Pantoprazole Sodium [Protonix] 40 mg PO DAILY 04/29/19 [History] Tramadol HCl [Ultram] 50 mg PO QID PRN 04/29/19 [History] Allergies/Adverse Reactions: Allergy/AdvReac Type Severity Reaction Status Date / Time No Known Allergies Allergy Verified 09/11/15 16:47 Date of admission: 05/01/19 09:22 Primary care physician: Javier Reese DO Consults: 04/29/19 15:35 Consult to Occupational Therapy [CONS] Routine Comment: Evaluate, develop and implement POC Reason for Consult: weakness Does patient have active BEDREST order?: No Is patient medically & hemodynamically stable?: Yes Consult to Physical Therapy [CONS] Routine Comment: Evaluate, develop and implement POC Reason for Consult: weakness Does patient have active BEDREST order?: No Is patient medically & hemodynamically stable?: Yes 04/29/19 16:45 Consult to Pattern Attendant [CONS] Routine Reason for SW Consult: possible PT/OT/nursing needs at discharge 04/29/19 17:07 Consult to Neurology [CONS] Routine Consulting Provider: [facility] Reason for Consult: leg weakness, freq falls. Call Completed: Yes - Constitutional Vitals: Temp Pulse Resp BP Pulse Ox 98.0 F 76 15 153/73 92 05/02/19 10:53 05/02/19 10:53 05/02/19 10:53 05/02/19 10:53 05/02/19 10:53 - Patient Status Disposition: Transfer Other Condition: Fair - Discharge Instructions Instructions: Acute Kidney Injury (DC), Restless Legs Syndrome (DC) Follow Up With: Agapito Reese DO [Primary Care Provider] - - Attending Attestation I saw evaluated and examined this patient and reviewed objective data including labs and my medical decision-making was reviewed with the Resident Physician/Medical Student. I agree with the documented findings, disposition and treatment plan as described except to any changes set forth below. We independently had lgol-el-acey contact with the patient. 74 year old female with history of RLS, status post lumbar fusion surgery 2016, presented to ED for frequent falling, left hip pain from falls, and weakness. Symptoms have been graudally worsening over the course of last few years. She was admitted for further workup. An x-ray of hip and MRI hip were both negative for fracture. An MRI cervical spine showed spinal canal stenosis worst at C6-C& level. Symptoms were most likely due to myelopathic symptoms. Neurology service was consulted. She was offered to see spine surgeon here but she refused. PT/OT evaluated patient and recommended SNF. Her pain was not responding well to pain medication without over sedating her which she wanted to avoid. She was not able to use NSAIDs due to borderline kidney function. Due to severe symptoms persisting, she was transferred to [facility] for Neurosurgery evaluation, who have performed lumbar fusion surgery on in the past. Patient transferred in stable condition. <Eligio Almonte - Last Filed: 05/02/19 23:15> - NOTES TO OUTPATIENT PROVIDER Notes to Outpatient Provider: Ms Doe was admitted to [facility] for weakness and frequent falls which was felt to be caused by her restless leg syndrome and myelopathy. She was transferred to [place] on 05/02 for further care by her neurosurgeon. Date of Encounter: 05/02/19 Time of Encounter: 13:58 - Discharge Diagnosis (1) Weakness Priority: Primary Status: Acute (2) Left hip pain Priority: Secondary Status: Acute (3) Hypertension Priority: Secondary Status: Acute Qualifiers: Hypertension type: essential hypertension Qualified Code(s): I10 - Essential (primary) hypertension (4) Hypothyroid Priority: Secondary Status: Acute Qualifiers: Hypothyroidism type: unspecified Qualified Code(s): E03.9 - Hypothyroidism, unspecified (5) Restless leg syndrome Priority: Primary Status: Acute (6) Chronic kidney disease (CKD), stage III (moderate) Priority: Secondary Status: Acute (7) RADHA (acute kidney injury) Priority: Secondary Status: Resolved (8) Frequent falls Priority: Secondary Status: Acute Hospital course: Ms. Doe is a 74 year old female with PMH of GERD, HTN, and thyroid disease. She initially presented to [facility] ED on 04/29/19 with complaints of left hip pain with frequent falls. While in the ED, a CT head was obtained which showed no acute process. A left hip and right foot x-rays were also obtained and were negative for fracture. She was ultimately admitted for possible syncope as etiology of frequent falls. A left hip MRI was obtained on 04/29 for further evaluation and demonstrated l imited study due to motion artifact with no acute fracture identified, and mild degenerative changes of the bilateral hips. A cervical spine MRI revealed spondylotic changes and disc osteophte comples reslts in [id number] canal narrowing at C5-6. An MRI of the lumbar spind demonstrated [id number] disc bulging at multiple levels with degenerative disc disease, however once again this study was limited due to motion artifact. Carotid dopplers showed minimal plaque. Echocardiogram showed LVEF 60% with indeterminate diastolic function, and mild tricuspid regurgitation. Lab work revealed normal TSH and B12. Neurology was consulted on 04/30. After their evaluation, they recommended continued follow up with the pt's Neurosurgeon at [facility]. It was felt the cervical disc disease was causing cervical myelopathy and frequent falling. Continued restless leg syndrom was attributed to lumbar disc disease as well as cervical disc disease with myelopathy. The patient was offered an evaluation by the spine surgeon at [facility], but she refused. PT and OT was recommended for weakness and hip pain. However the patient continued to have significant pain in her lower extremities. The pain was refractory to pain medication without over sedation, as the patient expressed wishing to avoid sedation. NSAIDs were not able to be used due to borderline kidney functions. Due to severe and persistent symptoms, the decision was made to transfer to [facility] for Neurosurgery evaluation, with whom she has seen previously. The patient was transferred in stable condition on the afternoon of 05/02/19. Discharge discussed with: patient, family, nurse, social work, benefits consultant - Time Spent with Patient Total time spent providing and/or coordinating discharge services: Date of admission: 05/01/19 09:22 Primary care physician: Javier Reese DO Consults: 04/29/19 15:35 Consult to Occupational Therapy [CONS] Routine Comment: Evaluate, develop and implement POC Reason for Consult: weakness Does patient have active BEDREST order?: No Is patient medically & hemodynamically stable?: Yes Consult to Physical Therapy [CONS] Routine Comment: Evaluate, develop and implement POC Reason for Consult: weakness Does patient have active BEDREST order?: No Is patient medically & hemodynamically stable?: Yes 04/29/19 16:45 Consult to Pattern Attendant [CONS] Routine Reason for SW Consult: possible PT/OT/nursing needs at discharge 04/29/19 17:07 Consult to Neurology [CONS] Routine Consulting Provider: [facility] Reason for Consult: leg weakness, freq falls. Call Completed: Yes - Constitutional Vitals: Temp Pulse Resp BP Pulse Ox 98.0 F 76 15 153/73 92 05/02/19 10:53 05/02/19 10:53 05/02/19 10:53 05/02/19 10:53 05/02/19 10:53 General appearance: Present: A&O X 3, obese Exam: General: resting semi-comfortably. Reportedly improved Head: NCAT Eyes: PERRL, EOMI, sclera anicteric Neck: supple, trachea midline Lungs: CTA bilaterally. Non-labored breathing. No wheezes, rales, or rhonchi Heart: RRR +s1 +s2 No murmurs, clicks, or rubs GI: abdomen soft, non-tender, non-distended Extremities: warm, radial pulses palpable and symmetrical. No calf tenderness, edema, or cyanosis. Left hip is TTP without any bruising or hematoma. Neuro: A&Ox3. Sensation of both lower extremities intact. Strength assessment limited due to patient left hip pain. No speech abnormality. Skin: warm, dry, intact. Right upper extremity contusion. - Patient Status Overall status at discharge: patient is not back to baseline - Diet and Activity Activity: as per physical therapy Diet: advance to your usual diet
== END 2019-05-02 15:02 | disposition other institution (70) | DRG 552 ==
LOC: EMEROOARM 12:11 → 3BNU 12:11
PROVIDERS: ADMIT Internal Medicine; ATTEND Student in an Organized Health Care Education/Training Program

== ENCOUNTER 2019-09-26 03:23 | Observation (INO) ==
[2019-09-26 04:10] LABS: Basophils % 0.3 %; Eosinophils % 0.2 %; Hematocrit 41.9 % (35.3-44.9); Hemoglobin 13.7 g/dL (11.5-15.4); Immature Granulocytes % 0.4 % (0-4); Lymphocytes # 0.3 K/mcL (0.6-4.6); Lymphocytes % 2.4 %; Mean Corpuscular HGB Conc 32.7 g/dL (31.6-35.5); Mean Corpuscular Hemoglobin 27.6 pg (28.0-33.3); Mean Corpuscular Volume 84.5 fL (83.0-100.0); Mean Platelet Volume 10.6 fL (9.4-12.4); Monocytes # 0.8 K/mcL (0.0-1.3); Monocytes % 5.5 %; Neutrophils # 12.7 K/mcL (1.6-8.9); Platelet Count 238 K/mcL (140-400); Red Blood Count 4.96 M/mcL (3.82-4.97); Red Cell Distribution Width 16.3 % (11.5-14.5); Segmented Neutrophils % 91.2 %; White Blood Count 13.9 K/mcL (4.3-11.1)
[2019-09-26 04:19] LABS: Bilirubin,Urine Small (Negative); Blood,Urine Negative (Negative); Clarity,Urine Cloudy (Clear); Color,Urine Dark Yellow (Yellow); Glucose,Urine (UA) Normal (Normal); Ketones,Urine Negative (Negative); Leukocyte Esterase,Urine Small (Negative); Nitrite,Urine Negative (Negative); PH,Urine 7.5 pH Units (5.0-8.0); Protein,Urine Trace mg/dL (Neg-Trace); Specific Gravity,Urine 1.022 (1.010-1.025); Urobilinogen,Urine Normal (Normal)
[2019-09-26 04:22] LABS: Bacteria,Urine None Seen per hpf (None-Few); Hyaline Casts,Urine None Seen per lpf (None-Few); RBC,Urine 0-3 per hpf (0-3); Squamous Epithelial Cell,Urine Many per lpf (None-Few)
[2019-09-26 04:37] LABS: Alanine Aminotransferase 109 Units/L (7-52); Albumin 3.9 g/dL (3.5-5.7); Albumin/Globulin Ratio 1.2 (1.1-2.2); Alkaline Phosphatase 555 Units/L (34-104); Aspartate Amino Transferase 160 Units/L (13-39); BUN/Creatinine Ratio 12 (6-26); Bilirubin,Direct 1.6 mg/dL (0.0-0.2); Bilirubin,Indirect 0.7 mg/dL (0.0-1.0); Bilirubin,Total 2.3 mg/dL (0.3-1.0); Blood Urea Nitrogen 12 mg/dL (8-23); Calcium 9.5 mg/dL (8.6-10.3); Carbon Dioxide 27 mEq/L (23-29); Chloride 95 mEq/L (98-107); Globulin 3.3 g/dL (2.4-3.5); Glucose 189 mg/dL (70-105); Lipase 21 Units/L (11-82); Osmolality,Calculated 281 (280-300); Potassium 4.2 mEq/L (3.5-5.1); Sodium 133 mEq/L (136-145); Total Protein 7.2 g/dL (6.4-8.9); Troponin I 0.03 ng/mL (< 0.04); eGFR For African Americans > 60 (> 60); eGFR For Non-African Americans 55 (> 60)
[2019-09-26] MEDS ORDERED: Isovue-370 500 ML BOTTLE IVP ONE (04:43)
[2019-09-26] MEDS ORDERED: *HR* HYDROmorphone (PF) 1 MG/ML SYRINGE IVP ONE (04:45)
[2019-09-26] MEDS ORDERED: 0.9 % Sodium Chloride 1,000 ML IVC ONE (04:45)
[2019-09-26] MEDS ORDERED: Ondansetron 4 MG/2 ML VIAL IVP ONE (04:48)
[2019-09-26] MEDS ORDERED: Piperacillin/Tazobactam 3.375 GM in Water for inj. (sterile) 20 ML IVP ONE (06:30)
[2019-09-26] MEDS ORDERED: Naloxone 0.4 MG/ML INJ IVP PRN (09:11)
[2019-09-26] MEDS ORDERED: Ondansetron 4 MG/2 ML VIAL ONE (13:52)
[2019-09-26] MEDS ORDERED: Dexamethasone 4 MG/ML VIAL ONE (13:52)
[2019-09-26] MEDS ORDERED: Lidocaine -MPF 2% 2 ML VIAL ONE ×2 (13:52→13:54)
[2019-09-26] MEDS ORDERED: *HR* FentaNYL (PF) 100 MCG/2 ML VIAL ONE (13:52)
[2019-09-26] MEDS ORDERED: *HR* Succinylcholine 200 MG/10 ML VIAL IVP ONE (13:52)
[2019-09-26] MEDS ORDERED: *HR* Propofol 200 MG/20 ML VIAL IVP ONE (13:53)
[2019-09-26] MEDS ORDERED: Lidocaine -MPF 4% 5 ML AMPUL ONE (13:56)
[2019-09-26] MEDS ORDERED: Indomethacin 50 MG SUPP.RECT RC ONE (15:14)
[2019-09-26] MEDS: Piperacillin/Tazobactam 3.375 GM in 0.9 % Sodium Chloride Mini Bag 100 ML IVPB SCH (16:45)
[2019-09-27] MEDS: Piperacillin/Tazobactam 3.375 GM in 0.9 % Sodium Chloride Mini Bag 100 ML IVPB SCH ×3 (01:13→20:30)
[2019-09-27 06:37] LABS: Basophils % 0.2 %; Mean Platelet Volume 11.6 fL (9.4-12.4); Red Cell Distribution Width 16.5 % (11.5-14.5)
[2019-09-27 06:41] LABS: Eosinophils % 0.1 %; Hematocrit 37.4 % (35.3-44.9); Hemoglobin 12.1 g/dL (11.5-15.4); Immature Granulocytes % 0.6 % (0-4); Lymphocytes # 0.6 K/mcL (0.6-4.6); Lymphocytes % 5.4 %; Mean Corpuscular HGB Conc 32.4 g/dL (31.6-35.5); Mean Corpuscular Hemoglobin 28.4 pg (28.0-33.3); Mean Corpuscular Volume 87.8 fL (83.0-100.0); Monocytes # 0.4 K/mcL (0.0-1.3); Monocytes % 3.7 %; Neutrophils # 9.6 K/mcL (1.6-8.9); Platelet Count 235 K/mcL (140-400); Red Blood Count 4.26 M/mcL (3.82-4.97); White Blood Count 10.7 K/mcL (4.3-11.1)
[2019-09-27 06:58] LABS: Calcium 8.8 mg/dL (8.6-10.3); Potassium 4.8 mEq/L (3.5-5.1)
[2019-09-27] MEDS ORDERED: 0.9 % Sodium Chloride 1,000 ML IVC SCH ×2 (08:00→17:42)
[2019-09-27] MEDS ORDERED: Cholecalciferol (D-3) 1,000 UNIT (25MCG) TABLET PO SCH (09:00)
[2019-09-27] MEDS ORDERED: Magnesium Oxide 400 MG TABLET PO SCH (09:00)
[2019-09-27] MEDS ORDERED: Cyanocobalamin (B-12) 1,000 MCG TABLET PO SCH (09:00)
[2019-09-27] MEDS ORDERED: Folic Acid 1 MG TABLET PO SCH (09:00)
[2019-09-27] MEDS ORDERED: Lidocaine -MPF 2% 2 ML VIAL ONE (14:43)
[2019-09-27] MEDS ORDERED: *HR* Rocuronium Bromide 50 MG/5 ML VIAL ONE (14:43)
[2019-09-27] MEDS ORDERED: *HR* FentaNYL (PF) 100 MCG/2 ML VIAL ONE ×2 (14:43→15:50)
[2019-09-27] MEDS ORDERED: Ondansetron 4 MG/2 ML VIAL ONE (14:43)
[2019-09-27] MEDS ORDERED: *HR* Propofol 200 MG/20 ML VIAL IVP ONE (14:43)
[2019-09-27] MEDS ORDERED: *HR* Midazolam HCl 2 MG/2 ML VIAL ONE (14:43)
[2019-09-27] MEDS ORDERED: Dexamethasone 4 MG/ML VIAL ONE (14:43)
[2019-09-27] MEDS ORDERED: Lidocaine HCL 4 ML Topical Solution (Laryng-O-Jet Kit Sterile Pak) TP ONE (14:43)
[2019-09-27] MEDS ORDERED: cefOXitin 1,000 MG, 0.9 % Sodium Chloride 1,000 ML IR ONE ×2 (15:00→17:42)
[2019-09-27] MEDS ORDERED: CefOXitin 2,000 MG VIAL ONE (15:17)
[2019-09-27] MEDS ORDERED: CefOXitin 1,000 MG VIAL ONE (15:23)
[2019-09-27] MEDS ORDERED: Isovue-300 50ML VIAL ONE (15:25)
[2019-09-27] MEDS ORDERED: *HR* HYDROMORPHONE 2 MG/ML VIAL ONE (16:00)
[2019-09-27] MEDS ORDERED: Neostigmine Methylsulfate 3 MG/3 ML SYRINGE ONE (16:04)
[2019-09-27] MEDS ORDERED: *HR* HYDROmorphone (PF) 1 MG/ML SYRINGE IVP PRN (16:49)
[2019-09-27] MEDS ORDERED: *HR* Promethazine 25 MG/ML VIAL IVP PRN (16:54)
[2019-09-27] MEDS ORDERED: Ondansetron 4 MG/2 ML VIAL IVP ONE (16:54)
[2019-09-27] MEDS ORDERED: *HR* Labetalol 20 MG/4 ML SYRINGE IVP PRN (16:54)
[2019-09-27] MEDS: *HR* HYDROmorphone (PF) 1 MG/ML SYRINGE IVP PRN ×2 (16:59→17:06)
[2019-09-27] MEDS ORDERED: Naloxone 0.4 MG/ML INJ IVP PRN (17:42)
[2019-09-28 05:42] LABS: Basophils % 0.2 %; Hematocrit 34.7 % (35.3-44.9); Hemoglobin 10.9 g/dL (11.5-15.4); Immature Granulocytes % 0.4 % (0-4); Lymphocytes # 0.6 K/mcL (0.6-4.6); Lymphocytes % 4.8 %; Mean Corpuscular HGB Conc 31.4 g/dL (31.6-35.5); Mean Corpuscular Hemoglobin 28.8 pg (28.0-33.3); Mean Corpuscular Volume 91.6 fL (83.0-100.0); Mean Platelet Volume 11.5 fL (9.4-12.4); Monocytes # 0.5 K/mcL (0.0-1.3); Monocytes % 3.9 %; Neutrophils # 10.5 K/mcL (1.6-8.9); Platelet Count 228 K/mcL (140-400); Red Blood Count 3.79 M/mcL (3.82-4.97); Red Cell Distribution Width 16.6 % (11.5-14.5); Segmented Neutrophils % 90.7 %; White Blood Count 11.6 K/mcL (4.3-11.1)
[2019-09-28 06:01] LABS: Calcium 8.6 mg/dL (8.6-10.3); Potassium 5.2 mEq/L (3.5-5.1)
[2019-09-28] MEDS: Piperacillin/Tazobactam 3.375 GM in 0.9 % Sodium Chloride Mini Bag 100 ML IVPB SCH ×2 (07:05→09:06)
[2019-09-28 07:22] VITALS: BP 136/77
[2019-09-28] MEDS ORDERED: Cyanocobalamin (B-12) 1,000 MCG TABLET PO SCH (09:00)
[2019-09-28] MEDS ORDERED: Magnesium Oxide 400 MG TABLET PO SCH (09:00)
[2019-09-28] MEDS ORDERED: Cholecalciferol (D-3) 1,000 UNIT (25MCG) TABLET PO SCH (09:00)
[2019-09-28] MEDS ORDERED: Folic Acid 1 MG TABLET PO SCH (09:00)
== END 2019-09-28 12:22 | disposition home or self-care (01) ==
LOC: 3ANU 03:23 → EMEROOARM 03:23 → 3ANU 08:28
PROVIDERS: ADMIT Family Medicine; ATTEND Family Medicine